=== PATIENT | female | born 1940 | race Caucasian/White ===

== ENCOUNTER → 2020-01-24 09:28 | Outpatient (BNVA) | payer MEDICARE, SELFPAY | PROVIDERS: Family Provider Surgery Plastic and Reconstructive Surgery; PCP Family Medicine; Visit Provider Nurse Practitioner Family | DX: Z85.038 Personal history of other malignant neoplasm of large intestine (principal); I10 Essential (primary) hypertension | CPT/HCPCS: 80053; 80061; 82378; 84439; 84443 ==

== ENCOUNTER → 2020-06-04 14:02 | Outpatient (BNVA) | payer MEDICARE, SELFPAY | PROVIDERS: Family Provider Surgery Plastic and Reconstructive Surgery; PCP Family Medicine; Visit Provider Nurse Practitioner Family | DX: M25.562 Pain in left knee (principal); M17.12 Unilateral primary osteoarthritis, left knee; M11.262 Other chondrocalcinosis, left knee | CPT/HCPCS: 73562 ==

== ENCOUNTER 2020-06-12 10:34 | Outpatient (CLI) | payer MEDICARE, SELFPAY ==
--- NOTE | 2020-06-12 13:15 | CT_ITS ---
WS: [id number] CT LEFT KNEE, NONCONTRAST AND 3-D IMAGING. HISTORY: abnormal x ray of left knee, with increased pain Technique: All CT scans at [facility] use at least one of these dose optimization techniq ues: automated exposure control; mA and/or kV adjustment per patient size (includes targeted exams wh ere dose is matched to clinical indication); or iterative reconstruction. DLP: 1332.78 mGycm COMPARISON: 06/04/2020 radiographs. Mild tricompartment osteoarthritis. No fracture is identified. Mineralization along the medial and la teral joint spaces from chondrocalcinosis. Tibial spines are still intact. Small osteophytes from all 3 compartments. No significant joint effusion. Soft tissue calcifications in the medial knee are pro bably phleboliths. CT/CT knee LT wo con* [id number] IMPRESSION: 1. No acute fracture is identified. 2. Mild tricompartment osteoarthritis and chondrocalcinosis. 3. No joint effusion.
== END 2020-06-12 10:35 | disposition home or self-care (01) ==
LOC: RADWPI 10:40
PROVIDERS: Family Provider Family Medicine; PCP Family Medicine; Visit Provider Nurse Practitioner Family
DX: R93.6 Abnormal findings on diagnostic imaging of limbs (principal); M25.562 Pain in left knee; M17.12 Unilateral primary osteoarthritis, left knee; M11.262 Other chondrocalcinosis, left knee
CPT/HCPCS: 73700

== ENCOUNTER → 2020-08-28 07:47 | Outpatient (BNVA) | payer MEDICARE, SELFPAY | PROVIDERS: Family Provider Family Medicine; PCP Family Medicine; Visit Provider Nurse Practitioner Family | DX: Z11.59 Encounter for screening for other viral diseases (principal) | CPT/HCPCS: 87635 ==

== ENCOUNTER 2020-12-12 14:27 | Emergency (ER) | payer MEDICARE, SELFPAY ==
[2020-12-12] VITALS (7 sets, daily range): BP systolic 133–167; BP diastolic 76–92; PULSE 85–104; RESP 16–22; TEMP 36.3; O2SAT 95–99; BMI 34.0
--- NOTE | 2020-12-12 14:49 | W.ED.ARRPALP ---
Documented by User: Zeferino Henriquez DO 12/13/20 07:58 HPI - Arrhythmia/Palpitations General: Chief Complaint: Arrhythmia/Palpitations Stated Complaint: POSS AFIB Time Seen by Provider: 12/12/20 14:41 History of Present Illness: HPI narrative: 80-year-old male presents to the emergency room with complaints of rapid heart rate. She usually takes metoprolol succinate 100 mg twice daily. She did take her medications on time regular she has not skipped any but since yesterday her heart rates been rapid. Not had any chest pain no orthopnea increased shortness of breath with minimal exertion. She denies any nausea vomiting diarrhea denies any fever sweats chills or flulike symptoms. She is on anticoagulants, Xarelto. She has not had any signs of GI blood loss. MD complaint: rapid heart beat, heart racing , irregular heart beat and atrial fibrillation Onset (ago): day(s) Duration: constant Severity: moderate Context: occurred during rest and occurred during exertion Arrhythmia history: atrial fibrillation Associated symptoms: Reports short of breath; Deny anxiety, cough, diaphoresis, muscle cramps, nausea, paresthesias, pre-syncope, sense of impending doom, syncope or vomiting Review of Systems Const: Denies: diaphoresis ENMT: Denies: throat pain, ear or mastoid pain, nasal discharge or nasal congestion Card: Denies: syncope or pre-syncope Resp: Denies: dyspnea, productive cough or non-productive cough GI: Denies: nausea or vomiting : Denies: flank pain, difficulty voiding, dysuria, urinary frequency or urinary urgency Musc: Denies: muscle cramps Skin/Breast: Denies: rash or pruritus Psych: Denies: anxiety PFSH ED PFSH: Medical History Asthma Atrial fibrillation Eczema Enrolled in chronic care management HTN (hypertension) Hx of malignant neoplasm of colon Hyperlipidemia Lower extremity edema Surgical History S/P foot surgery S/P knee surgery Right S/P right hemicolectomy Social History Smoking and tobacco status: never smoked History of recent travel: No Physical Exam Const: COMMON NORMALS: no acute distress GENERAL APPEARANCE: cooperative and comfortable ORIENTATION/CONSCIOUSNESS: Yes awake, Yes oriented to person, Yes oriented to place and Yes oriented to time HENMT: COMMON NORMALS: normocephalic, atraumatic and hearing grossly normal bilaterally HEAD & SCALP: normocephalic and atraumatic Eye: COMMON NORMALS: Equal, round and reactive pupils present, EOMs intact bilaterally, conjunctivae normal and no scleral icterus CONJUNCTIVA: Yes conjunctivae normal PUPIL: Yes Equal, round and reactive pupils present Neck/C-Spine: COMMON NORMALS: full ROM, no lymphadenopathy and supple Lymph: LYMPHATIC: no lymphadenopathy noted and no lymphedema noted Resp: COMMON NORMALS: normal respiratory effort, No retractions, No use of accessory muscles and clear to auscultation bilaterally AUSCULTATION: clear to auscultation bilaterally Cardio: RATE: tachycardic RHYTHM: abnormal rhythm irregularly irregular GI: COMMON NORMALS: Soft to palpation and No hepatosplenomegaly present AUSCULTATION: Yes normoactive bowel sounds PALPATION: Yes Soft to palpation, No Tenderness to palpation present (GI), No Guarding due to palpation present (GI) and Yes No hepatosplenomegaly present Extremity: COMMON NORMALS: normal to inspection, capillary refill normal, no clubbing, cyanosis or edema, no calf tenderness and no pedal edema Neuro: SENSORIUM/ORIENTATION: Yes oriented to person, Yes oriented to place and Yes oriented to time Skin: COMMON NORMALS: no rashes or lesions noted GENERAL SKIN EXAM: no rashes or lesions noted Course Vital Signs: Vital signs: Vital Signs Temperature 97.4 F L 12/12/20 14:49 Pulse Rate 94 12/12/20 19:32 Respiratory Rate 16 12/12/20 19:32 Blood Pressure 136/88 12/12/20 19:32 Pulse Oximetry 98 12/12/20 19:32 MDM - Arrhythmia/Palpitations MDM Narrative: Medical decision making narrative: Patient initially seen by myself laboratory test pending. Her rate is improved with the IV metoprolol and extra p.o. metoprolol. Second troponin is pending care turned over to Dr. Dobson see his note for final diagnosis and disposition. Lab Data: Labs: Lab Results 12/12/20 12/12/20 12/12/20 Range/Units 15:45 15:45 15:45 WBC 6.2 (4.0-10.0) 10^3/ uL RBC 4.42 (4.1-5.3) 10^6/u L Hgb 13.1 (11.5-15.3) g/dL Hct 40.1 (37.0-47.0) % MCV 90.7 (81-99) fL MCH 29.6 (28.0-34.0) pg MCHC 32.7 (30.0-36.0) g/dL RDW 12.1 (12.1-15.1) % Plt Count 258 (130-400) 10^3/c mm MPV 10.4 (7.4-10.4) fL Neut % (Auto) 69.3 % Lymph % (Auto) 21.2 % [place] % (Auto) 7.4 % Eos % (Auto) 1.0 % Baso % (Auto) 0.6 % Neut # (Auto) 4.32 (1.8-7.7) 10^3/u L Lymph # (Auto) 1.3 (0.8-4.8) 10^3/u L [place] # (Auto) 0.5 (0.2-0.9) 10^3/u L Eos # (Auto) 0.1 (0.0-0.8) 10^3/u L Baso # (Auto) 0.0 (0.0-0.1) 10^3/u L Nucleated RBC % (a uto) 0 % Nucleated RBCs # 0.0 /100WBC Sodium 138 (136-145) mmol/L Potassium 4.4 (3.5-5.1) mmol/L Chloride 102 (98-107) mmol/L Carbon Dioxide 24 (22-29) mmol/L Anion Gap 16.4 (5-19) BUN 21 (8-23) mg/dL Creatinine 1.1 H (0.5-0.9) mg/dL GFR Calculation Not Reportable Glucose 109 (65-115) mg/dL Calculated Osmolal ity 290 (285-295) mOsm/k g Calcium 9.7 (8.5-10.5) mg/dL Total Bilirubin 0.4 (0.15-1.2) mg/dL AST 15 (0-32) U/L ALT 10 (0-33) U/L Alkaline Phosphata se 88 (35-105) IU/L Creatine Kinase 61 (26-192) U/L Troponin T Baselin e 7 (0-10) ng/L Troponin T 120 Min [place] (0-10) ng/L Delta Troponin T (0-10) ABS# NT-Pro-B Natriuret Pep 2127 H (0-450) pg/mL Total Protein 7.2 (6.6-8.7) g/dL Albumin 4.1 (3.5-5.2) g/dL Globulin 3.1 (1.3-4.6) g/dL 12/12/20 Range/Units 17:40 WBC (4.0-10.0) 10^3/ uL RBC (4.1-5.3) 10^6/u L Hgb (11.5-15.3) g/dL Hct (37.0-47.0) % MCV (81-99) fL MCH (28.0-34.0) pg MCHC (30.0-36.0) g/dL RDW (12.1-15.1) % Plt Count (130-400) 10^3/c mm MPV (7.4-10.4) fL Neut % (Auto) % Lymph % (Auto) % [place] % (Auto) % Eos % (Auto) % Baso % (Auto) % Neut # (Auto) (1.8-7.7) 10^3/u L Lymph # (Auto) (0.8-4.8) 10^3/u L [place] # (Auto) (0.2-0.9) 10^3/u L Eos # (Auto) (0.0-0.8) 10^3/u L Baso # (Auto) (0.0-0.1) 10^3/u L Nucleated RBC % (a uto) % Nucleated RBCs # /100WBC Sodium (136-145) mmol/L Potassium (3.5-5.1) mmol/L Chloride (98-107) mmol/L Carbon Dioxide (22-29) mmol/L Anion Gap (5-19) BUN (8-23) mg/dL Creatinine (0.5-0.9) mg/dL GFR Calculation Glucose (65-115) mg/dL Calculated Osmolal ity (285-295) mOsm/k g Calcium (8.5-10.5) mg/dL Total Bilirubin (0.15-1.2) mg/dL AST (0-32) U/L ALT (0-33) U/L Alkaline Phosphata se (35-105) IU/L Creatine Kinase (26-192) U/L Troponin T Baselin e (0-10) ng/L Troponin T 120 Min [place] 6.74 (0-10) ng/L Delta Troponin T -0.26 L (0-10) ABS# NT-Pro-B Natriuret Pep (0-450) pg/mL Total Protein (6.6-8.7) g/dL Albumin (3.5-5.2) g/dL Globulin (1.3-4.6) g/dL Discharge Plan Discharge Patient Disposition: Home Clinical Impression: Atrial fibrillation Condition: Stable Prescriptions: New diltiazem HCl 90 mg tablet 90 mg PO Q6H PRN (Reason: Heart Reat > 90) Qty: 14 RF: 0 No Action albuterol sulfate [ProAir HFA] 90 mcg/actuation HFA aerosol inhaler 2 puff INHALATION Q6H PRN (Reason: Shortness Of Breath) RF: 0 albuterol sulfate 2.5 mg /3 mL (0.083 %) solution for nebulization 2.5 mg INHALATION Q4H PRN (Reason: asthma attachs) RF: 0 metoprolol succinate 200 mg tablet extended release 24 hr 100 mg PO Q12H RF: 0 Vitamin B-6 1 mg PO DAILY@1929 RF: 0 isosorbide mononitrate 30 mg tablet extended release 24 hr 30 mg PO BID@799,1929 RF: 0 amlodipine 5 mg tablet 5 mg PO DAILY@799 RF: 0 Singulair 10 mg tablet 10 mg PO DAILY@1929 RF: 0 Colcrys 0.6 mg tablet 0.6 mg PO DAILY@799 RF: 0 Diovan HCT 320-25 mg tablet 0.5 tab PO BID@799,1999 RF: 0 Xarelto 20 mg tablet 20 mg PO DAILY@1929 RF: 0 Discharge Orders: Discharge ED (Routine); Ordered 12/12/20 Ordered By: Adan Dobson Referrals: Rob Agudelo DO [Primary Care Provider] - Gwendolyn Duron MD [Physician] - 1-3 days Discharge Diet: Advance as tolerated Discharge Activity: Limit activity as instructed Patient Instructions: Atrial Fibrillation (ED) Activity Restrictions/Additional Instructions: Turn for chest discomfort, shortness of breath, worsening dizziness, fever, other concerning symptoms. Call your golf sales manager on Tuesday. Use the medication as directed for heart rates greater than 90, especially if symptomatic. Coding Level of Care Code ED Compliance Technician for Chg Fwd Exam Comprehensive Documented by User: Adan Dobson DO 12/12/20 19:34 HPI - Arrhythmia/Palpitations General: Chief Complaint: Arrhythmia/Palpitations Stated Complaint: POSS AFIB Time Seen by Provider: 12/12/20 14:41 PFSH ED PFSH: Medical History Asthma Atrial fibrillation Eczema Enrolled in chronic care management HTN (hypertension) Hx of malignant neoplasm of colon Hyperlipidemia Lower extremity edema Surgical History S/P foot surgery S/P knee surgery Right S/P right hemicolectomy Social History Smoking and tobacco status: never smoked History of recent travel: No Course Vital Signs: Vital signs: Vital Signs Temperature 97.4 F L 12/12/20 14:49 Pulse Rate 94 12/12/20 19:32 Respiratory Rate 16 12/12/20 19:32 Blood Pressure 136/88 12/12/20 19:32 Pulse Oximetry 98 12/12/20 19:32 MDM - Arrhythmia/Palpitations MDM Narrative: Medical decision making narrative: 80-year-old lady originally seen by Dr. Henriquez and checked out to me at shift change. This lady has a history of atrial fibrillation, longstanding. Evidently she spends quite a bit of her time in sinus rhythm or slow atrial fibrillation. She is noticed an elevated heart rate, and has been a bit dizzy and shaky with it. Her heart rate has been below 100 here after some extra metoprolol. She notes that she was worried about taking her metoprolol at home because her blood pressure was only 110 systolic. Her blood pressures been fine here. She had orders from her golf sales manager to take an extra 50 of metoprolol if needed. She also had diltiazem at home, which she says seem to work better for her heart rate when it is elevated. Her laboratory was benign, troponin did not raise at 2 hours. Her EKG shows stable atrial fibrillation with no acute ST changes she will be discharged home. She will be given short acting diltiazem for as needed rate control of her rate goes above 90. She will call her golf sales manager on Tuesday, or return for any worsening symptoms. She understands these instructions well. Lab Data: Labs: Lab Results 12/12/20 12/12/20 12/12/20 Range/Units 15:45 15:45 15:45 WBC 6.2 (4.0-10.0) 10^3/ uL RBC 4.42 (4.1-5.3) 10^6/u L Hgb 13.1 (11.5-15.3) g/dL Hct 40.1 (37.0-47.0) % MCV 90.7 (81-99) fL MCH 29.6 (28.0-34.0) pg MCHC 32.7 (30.0-36.0) g/dL RDW 12.1 (12.1-15.1) % Plt Count 258 (130-400) 10^3/c mm MPV 10.4 (7.4-10.4) fL Neut % (Auto) 69.3 % Lymph % (Auto) 21.2 % [place] % (Auto) 7.4 % Eos % (Auto) 1.0 % Baso % (Auto) 0.6 % Neut # (Auto) 4.32 (1.8-7.7) 10^3/u L Lymph # (Auto) 1.3 (0.8-4.8) 10^3/u L [place] # (Auto) 0.5 (0.2-0.9) 10^3/u L Eos # (Auto) 0.1 (0.0-0.8) 10^3/u L Baso # (Auto) 0.0 (0.0-0.1) 10^3/u L Nucleated RBC % (a uto) 0 % Nucleated RBCs # 0.0 /100WBC Sodium 138 (136-145) mmol/L Potassium 4.4 (3.5-5.1) mmol/L Chloride 102 (98-107) mmol/L Carbon Dioxide 24 (22-29) mmol/L Anion Gap 16.4 (5-19) BUN 21 (8-23) mg/dL Creatinine 1.1 H (0.5-0.9) mg/dL GFR Calculation Not Reportable Glucose 109 (65-115) mg/dL Calculated Osmolal ity 290 (285-295) mOsm/k g Calcium 9.7 (8.5-10.5) mg/dL Total Bilirubin 0.4 (0.15-1.2) mg/dL AST 15 (0-32) U/L ALT 10 (0-33) U/L Alkaline Phosphata se 88 (35-105) IU/L Creatine Kinase 61 (26-192) U/L Troponin T Baselin e 7 (0-10) ng/L Troponin T 120 Min [place] (0-10) ng/L Delta Troponin T (0-10) ABS# NT-Pro-B Natriuret Pep 2127 H (0-450) pg/mL Total Protein 7.2 (6.6-8.7) g/dL Albumin 4.1 (3.5-5.2) g/dL Globulin 3.1 (1.3-4.6) g/dL 12/12/20 Range/Units 17:40 WBC (4.0-10.0) 10^3/ uL RBC (4.1-5.3) 10^6/u L Hgb (11.5-15.3) g/dL Hct (37.0-47.0) % MCV (81-99) fL MCH (28.0-34.0) pg MCHC (30.0-36.0) g/dL RDW (12.1-15.1) % Plt Count (130-400) 10^3/c mm MPV (7.4-10.4) fL Neut % (Auto) % Lymph % (Auto) % [place] % (Auto) % Eos % (Auto) % Baso % (Auto) % Neut # (Auto) (1.8-7.7) 10^3/u L Lymph # (Auto) (0.8-4.8) 10^3/u L [place] # (Auto) (0.2-0.9) 10^3/u L Eos # (Auto) (0.0-0.8) 10^3/u L Baso # (Auto) (0.0-0.1) 10^3/u L Nucleated RBC % (a uto) % Nucleated RBCs # /100WBC Sodium (136-145) mmol/L Potassium (3.5-5.1) mmol/L Chloride (98-107) mmol/L Carbon Dioxide (22-29) mmol/L Anion Gap (5-19) BUN (8-23) mg/dL Creatinine (0.5-0.9) mg/dL GFR Calculation Glucose (65-115) mg/dL Calculated Osmolal ity (285-295) mOsm/k g Calcium (8.5-10.5) mg/dL Total Bilirubin (0.15-1.2) mg/dL AST (0-32) U/L ALT (0-33) U/L Alkaline Phosphata se (35-105) IU/L Creatine Kinase (26-192) U/L Troponin T Baselin e (0-10) ng/L Troponin T 120 Min [place] 6.74 (0-10) ng/L Delta Troponin T -0.26 L (0-10) ABS# NT-Pro-B Natriuret Pep (0-450) pg/mL Total Protein (6.6-8.7) g/dL Albumin (3.5-5.2) g/dL Globulin (1.3-4.6) g/dL Discharge Plan Discharge Patient Disposition: Home Clinical Impression: Atrial fibrillation Condition: Stable Prescriptions: New diltiazem HCl 90 mg tablet 90 mg PO Q6H PRN (Reason: Heart Reat > 90) Qty: 14 RF: 0 No Action albuterol sulfate [ProAir HFA] 90 mcg/actuation HFA aerosol inhaler 2 puff INHALATION Q6H PRN (Reason: Shortness Of Breath) RF: 0 albuterol sulfate 2.5 mg /3 mL (0.083 %) solution for nebulization 2.5 mg INHALATION Q4H PRN (Reason: asthma attachs) RF: 0 metoprolol succinate 200 mg tablet extended release 24 hr 100 mg PO Q12H RF: 0 Vitamin B-6 1 mg PO DAILY@1929 RF: 0 isosorbide mononitrate 30 mg tablet extended release 24 hr 30 mg PO BID@799,1929 RF: 0 amlodipine 5 mg tablet 5 mg PO DAILY@799 RF: 0 Singulair 10 mg tablet 10 mg PO DAILY@1929 RF: 0 Colcrys 0.6 mg tablet 0.6 mg PO DAILY@799 RF: 0 Diovan HCT 320-25 mg tablet 0.5 tab PO BID@799,1999 RF: 0 Xarelto 20 mg tablet 20 mg PO DAILY@1929 RF: 0 Discharge Orders: Discharge ED (Routine); Ordered 12/12/20 Ordered By: Adan Dobson Referrals: Rob Agudelo DO [Primary Care Provider] - Gwendolyn Duron MD [Physician] - 1-3 days Discharge Diet: Advance as tolerated Discharge Activity: Limit activity as instructed Patient Instructions: Atrial Fibrillation (ED) Activity Restrictions/Additional Instructions: Turn for chest discomfort, shortness of breath, worsening dizziness, fever, other concerning symptoms. Call your golf sales manager on Tuesday. Use the medication as directed for heart rates greater than 90, especially if symptomatic. Coding Level of Care Code ED Compliance Technician for Chg Fwd Exam Comprehensive
--- NOTE | 2020-12-12 15:06 | XR_ITS ---
WS: [id number] Exam: XR chest 1V portable [id number] Date/Time of Exam: 12/12/2020 3:06 PM Reason For Exam: afib Comparison 01/02/2016. The lungs are clear and fully inflated. Heart size is top limits normal. The mediastinum is not widen ed. There is dextroscoliosis and degenerative change of the T-spine. XR/XR chest 1V portable [id number] IMPRESSION: 1. No acute cardiopulmonary finding.
--- NOTE | 2020-12-12 15:06 | ECG_ITS ---
[facility] Test Date: 2020-12-12 Pat Name: Ruchi Alva Department: Room: Gender: Female Sr. Unix System Administrator: : 1940 Requested By: Zeferino Calderon Order Number: [id number] Nestor MD: Sharonda Ackerman M.D. Measurements Intervals [place] Rate: 91 P: [place]: QRS: -3 QRSD: 101 T: 59 QT: 392 QTc: 483 Interpretive Statements ATRIAL FIBRILLATION INFERIOR MYOCARDIAL INFARCTION , PROBABLY OLD [40+ ms Q WAVE AND/OR ST/T ABNORMALITY IN II/aVF] Compared to ECG 04/16/2016 21:41:55 Myocardial infarct finding now present Sinus rhythm no longer present Electronically Signed On 12-12-2020 22:09:39 CLAIMS ADMINISTRATOR by Sharonda Ackerman M.D. [email or web address]
[2020-12-12 15:56] LABS: Basophils % 0.6 %; Eosinophils # 0.1 10^3/uL (0.0-0.8); Hematocrit 40.1 % (37.0-47.0); Hemoglobin 13.1 g/dL (11.5-15.3); Lymphocytes # 1.3 10^3/uL (0.8-4.8); Lymphocytes % 21.2 %; Mean Corpuscular HGB Conc 32.7 g/dL (30.0-36.0); Mean Corpuscular Hemoglobin 29.6 pg (28.0-34.0); Mean Corpuscular Volume 90.7 fL (81-99); Mean Platelet Volume 10.4 fL (7.4-10.4); Monocytes # 0.5 10^3/uL (0.2-0.9); Monocytes % 7.4 %; Neutrophils # 4.32 10^3/uL (1.8-7.7); Neutrophils % 69.3 %; Nucleated Red Blood Cells % 0 %; Platelet Count 258 10^3/cmm (130-400); Red Blood Count 4.42 10^6/uL (4.1-5.3); Red Cell Distribution Width 12.1 % (12.1-15.1); White Blood Count 6.2 10^3/uL (4.0-10.0)
[2020-12-12] MEDS: metoprolol tartrate 1 mg/1 mL SDV 5 mL 2.5 MG IV (16:00)
[2020-12-12] MEDS: metoprolol tartrate 50 mg Tablet PO (16:01)
[2020-12-12 16:21] LABS: Troponin(5th) Baseline 7 ng/L (0-10)
[2020-12-12 16:30] LABS: Alanine Aminotransferase 10 U/L (0-33); Albumin Level 4.1 g/dL (3.5-5.2); Alkaline Phosphatase 88 IU/L (35-105); Aspartate Amino Transferase 15 U/L (0-32); Blood Urea Nitrogen 21 mg/dL (8-23); Calcium 9.7 mg/dL (8.5-10.5); Carbon Dioxide 24 mmol/L (22-29); Chloride 102 mmol/L (98-107); Creatine Phosphokinase 61 U/L (26-192); Globulin 3.1 g/dL (1.3-4.6); Glucose 109 mg/dL (65-115); NT Pro B Type Natriuretic Pept 2127 pg/mL (0-450); Osmolality Calculated 290 mOsm/kg (285-295); Sodium 138 mmol/L (136-145); Total Bilirubin 0.4 mg/dL (0.15-1.2); Total Protein 7.2 g/dL (6.6-8.7)
[2020-12-12 16:32] LABS: Anion Gap 16.4 (5-19); Potassium 4.4 mmol/L (3.5-5.1)
--- NOTE | 2020-12-12 17:06 | ECG_ITS ---
[facility] Test Date: 2020-12-12 Pat Name: Ruchi Alva Department: Room: Gender: Female Procedures Analyst: : 1940 Requested By: Zeferino Calderon Order Number: [id number] Nestor MD: Sharonda Ackerman M.D. Measurements Intervals [place] Rate: 85 P: [place]: QRS: 1 QRSD: 100 T: 53 QT: 382 QTc: 456 Interpretive Statements ATRIAL FIBRILLATION PROBABLE INFERIOR MYOCARDIAL INFARCTION , PROBABLY OLD [35 ms Q WAVE IN II/aVF] Compared to ECG 12/12/2020 15:11:50 No significant changes Electronically Signed On 12-12-2020 22:19:38 ORE TRIMMER by Sharonda Ackerman M.D. [email or web address]
[2020-12-12 18:20] LABS: Troponin 5 2HR 6.74 ng/L (0-10)
[2020-12-12 18:22] LABS: Troponin 5 2HR Delta -0.26 ABS# (0-10)
[2020-12-12] MEDS: dilTIAZem 60 mg Tablet 90 MG PO (19:34)
== END 2020-12-12 19:38 | disposition home or self-care (01) ==
PROVIDERS: Family Medicine; Emergency Provider Emergency Medicine; PCP Family Medicine
DX: I48.91 Unspecified atrial fibrillation (principal); I10 Essential (primary) hypertension; Z85.038 Personal history of other malignant neoplasm of large intestine; E78.5 Hyperlipidemia, unspecified
CPT/HCPCS: 12345; 36415; 71045; 80053; 82550; 83880; 84484; 85025; 93005; 96374; 99283; 99284; J3490